=== PATIENT | male | born 1990 | race African-American/Black ===

== ENCOUNTER 2017-02-02 15:11 | Inpatient (IN) | payer OTHER ==
[~2017-02-02] VITALS: Wt 81.0 kg
[2017-02-02] MEDS ORDERED: SOD CHLORIDE 0.9% 500 ML IV STA (15:19)
[2017-02-02] MEDS ORDERED: LEVETIRACETAM 1000 MG (PMX) 100 ML IVPB STA (15:19)
[2017-02-02 15:43] LABS: ADD SCAN DIFF NO
[2017-02-02 15:48] LABS: BASOPHILS % 0.3 % (0.0-2.0); EOSINOPHILS % 0.3 % (0.0-7.0); HEMATOCRIT 42.8 % (42.0-52.0); HEMOGLOBIN 14.5 g/dl (14.0-18.0); LYMPHOCYTES # 0.7 10^3/ul (0.8-2.9); LYMPHOCYTES % 8.9 % (15.0-51.0); MEAN CORPUSCULAR HEMOGLOBIN 30.1 pg (29.0-33.0); MEAN CORPUSCULAR HGB CONC 33.9 g/dl (32.0-37.0); MEAN PLATELET VOLUME 11.5 fl (7.4-10.4); MONOCYTE # 0.3 10^3/ul (0.3-0.9); MONOCYTES % 3.4 % (0.0-11.0); NEUTROPHIL # 6.3 10^3/ul (1.6-7.5); NEUTROPHILS % 86.7 % (39.0-77.0); PLATELET COUNT 196 10^3/UL (140-415); RED BLOOD COUNT 4.81 10^6/ul (4.70-6.10); RED CELL DISTRIBUTION WIDTH 11.6 % (11.5-14.5); WHITE BLOOD COUNT 7.3 10^3/ul (4.8-10.8)
[2017-02-02 16:06] LABS: POTASSIUM 3.7 mmol/L (3.5-5.1)
[2017-02-02 16:08] LABS: CREATININE 1.04 mg/dl (0.61-1.24)
[2017-02-02 16:09] LABS: CALCIUM 8.9 mg/dl (8.4-10.2)
[2017-02-02] MEDS ORDERED: LORAZEPAM 2 MG INJ ONE (16:20)
[2017-02-02] MEDS ORDERED: LEVE-5 PO (16:28)
[2017-02-02] MEDS ORDERED: LORAZEPAM 2 MG INJ IV ONE (16:30)
--- NOTE | 2017-02-02 17:19 | RADRPT ---
PROCEDURE: CT Head without contrast. CLINICAL INDICATION: Multiple seizures TECHNIQUE: The study was performed utilizing a GE 64-slice multidetector CT scanner. Direct spiral axial CT images of the brain were obtained from the vertex to the skull base without contrast. Cor onal and sagittal reformat images are provided. The CTDI vol is 44.68 mGy and the DLP is 720.23 mGy -cm. The images were reviewed on a PACS workstation. COMPARISON: No prior studies are available for comparison. FINDINGS: The ventricles and cortical sulci are within normal limits. The infante-white matter differentiation i s maintained. No intra or extra-axial fluid collection or mass effect or shift in the midline struc tures is seen. The visualized paranasal sinuses, mastoid air cells, orbits, and calvarium are unrem arkable. Calcifications in the falx are seen. IMPRESSION: No acute intracranial pathology. RPTAT: HPNM Physician Tre Date Time Electronically viewed and signed by Physician Tre on 02/02/2017 17:18 /
[2017-02-02] MEDS ORDERED: SOD CHLORIDE 0.9% 1,000 ML IV SCH (17:29)
[2017-02-02] MEDS ORDERED: ACETAMINOPHEN 325 MG TAB PO PRN ×2 (17:30→19:00)
[2017-02-02] MEDS ORDERED: ONDANSETRON 4 MG INJ IV PRN ×2 (17:30→19:00)
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
[2017-02-02] MEDS ORDERED: HYDROCODONE/APAP (5/325) TAB PO PRN (19:00)
[2017-02-02] MEDS ORDERED: NACL 0.9% 3 ML SYG IV SCH (19:00)
[2017-02-02] MEDS ORDERED: morphine 2 MG INJ IV PRN (19:00)
[2017-02-02] MEDS ORDERED: ZOLPIDEM 5 MG TAB PO PRN (19:00)
[2017-02-02] MEDS ORDERED: LORAZEPAM 2 MG INJ IV PRN (19:00)
[2017-02-02 21:00] VITALS: BP 99/63; PULSE 65; RESP 17
[2017-02-02] MEDS: LEVETIRACETAM 1000 MG (PMX) 100 ML IVPB SCH (23:20)
[2017-02-03 05:12] LABS: ADD SCAN DIFF NO
[2017-02-03 05:27] LABS: BASOPHILS % 0.4 % (0.0-2.0); EOSINOPHILS # 0.1 10^3/ul (0.0-0.5); EOSINOPHILS % 0.8 % (0.0-7.0); HEMATOCRIT 40.5 % (42.0-52.0); HEMOGLOBIN 13.8 g/dl (14.0-18.0); LYMPHOCYTES # 1.3 10^3/ul (0.8-2.9); LYMPHOCYTES % 17.8 % (15.0-51.0); MEAN CORPUSCULAR HEMOGLOBIN 29.9 pg (29.0-33.0); MEAN CORPUSCULAR HGB CONC 34.1 g/dl (32.0-37.0); MEAN CORPUSCULAR VOLUME 87.9 fl (82.0-101.0); MEAN PLATELET VOLUME 11.7 fl (7.4-10.4); MONOCYTE # 0.6 10^3/ul (0.3-0.9); MONOCYTES % 7.6 % (0.0-11.0); NEUTROPHIL # 5.5 10^3/ul (1.6-7.5); NEUTROPHILS % 73.3 % (39.0-77.0); PLATELET COUNT 186 10^3/UL (140-415); RED BLOOD COUNT 4.61 10^6/ul (4.70-6.10); RED CELL DISTRIBUTION WIDTH 11.6 % (11.5-14.5); WHITE BLOOD COUNT 7.5 10^3/ul (4.8-10.8)
[2017-02-03 06:08] LABS: ALBUMIN 3.7 g/dl (3.3-4.9)
[2017-02-03 06:09] LABS: POTASSIUM 3.4 mmol/L (3.5-5.1)
[2017-02-03 06:11] LABS: ALBUMIN/GLOBULIN RATIO 1.19; CREATININE 0.94 mg/dl (0.61-1.24); TOTAL PROTEIN 6.8 g/dl (6.1-8.1)
[2017-02-03 06:12] LABS: CALCIUM 8.7 mg/dl (8.4-10.2); MAGNESIUM 2.2 mg/dl (1.7-2.5); PHOSPHORUS 3.1 mg/dl (2.5-4.9)
[2017-02-03 07:00] VITALS: BP 128/63; RESP 20
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
[2017-02-03] MEDS ORDERED: POTASSIUM CHLORIDE (SR) 20 MEQ TAB PO STA (11:19)
[2017-02-03] MEDS: LEVETIRACETAM 1000 MG (PMX) 100 ML IVPB SCH (11:50)
[2017-02-03] MEDS ORDERED: LEVE-5 PO (11:57)
[2017-02-03] MEDS ORDERED: LEVE100018 PO (11:57)
--- NOTE | 2017-02-03 11:58 | PDOCDIS ---
Discharge Instructions CONDITION Patient Condition: Good HOME CARE INSTRUCTIONS: Diet Instructions: Regular ACTIVITY: Activity Restrictions: No Restrictions FOLLOW UP/APPOINTMENTS Appointments F/U WITH YOUR PCP IN 1-2 WEEKS AND WITH A NEUROLOGIST SOON POSSIBLE VICENTA ESCALERA February 03, 2017 11:58
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
== END 2017-02-03 15:15 | disposition home or self-care (01) | DRG 101 ==
LOC: E/R 15:11 → MS1 17:30
PROVIDERS: ADMIT Internal Medicine; ATTEND Internal Medicine
DX: G40.909 Epilepsy, unspecified, not intractable, without status epilepticus (principal); Z87.820 Personal history of traumatic brain injury
CPT/HCPCS: 70450; 80048; 80053; 83036; 83735; 84100; 85025; 93005; 96374; 96375; J1953; J2060; J7030; J7040